=== PATIENT | female | born 1975 | race Caucasian/White ===

== ENCOUNTER 2020-11-25 05:45 | Emergency (ER) | payer OTHER ==
[2020-11-25 05:52] VITALS: TEMP 98
[2020-11-25] MEDS ORDERED: SODIUM CHLORIDE 0.9% 1,000 ML IV STA (06:12)
[2020-11-25 06:24] LABS: Basophils # (A) 0.1 k/uL (0-0.2); Basophils % (A) 0 %; Eosinophils # (A) 0.2 k/uL (0-0.7); Eosinophils % (A) 2 %; HCT 43.9 % (34.0-46.0); HGB 14.3 gm/dL (11.4-16.0); Lymphocytes # (A) 1.9 k/uL (1.0-4.8); Lymphocytes % (A) 13 %; MCH 32.1 pg (25.0-35.0); MCHC 32.5 g/dL (31.0-37.0); MCV 98.9 fL (80.0-100.0); Mean Platelet Volume 7.1; Monocytes # (A) 0.5 k/uL (0-1.0); Monocytes % (A) 4 %; Neutrophils # (A) 11.4 k/uL (1.3-7.7); Neutrophils % (A) 80 %; Platelet Count 228 k/uL (150-450); RBC 4.44 m/uL (3.80-5.40); RDW 13.2 % (11.5-15.5); WBC 14.3 k/uL (3.8-10.6)
--- NOTE | 2020-11-25 06:33 | ED ---
General Adult HPI - General Chief complaint: Abdominal Pain Stated complaint: ABD pain Source: patient, family Mode of arrival: wheelchair Limitations: no limitations - History of Present Illness Initial comments: 45-year-old female presents to the emergency room for a chief complaint of abdominal pain. Patient reports that she has had left side pain for the past 2 days. Patient states that she did slip and fall against a cabinet several days ago and is unsure if she hit her side. She states she does have a bruise to that arm. Patient states that last night she started to feel like she had to urinate frequently. States that this morning she had pain in her side. States she tried to have a bowel movement because thought maybe that was the cause and had an episode of vomiting. This did not alleviate the pain. However upon presentation to the emergency department pain improved significantly. Patient denies fevers at home. Denies diarrhea.Patient has no other complaints at this time including shortness of breath, chest pain, nausea or vomiting, headache, or visual changes. - Related Data Home Medications Medication Instructions Recorded Confirmed Omeprazole 20 mg PO DAILY 11/25/20 11/25/20 Allergies Allergy/AdvReac Type Severity Reaction Status Date / Time amoxicillin Allergy Diarrhea Verified 11/25/20 07:21 Sulfa (Sulfonamide Allergy Rash/Hives Verified 11/25/20 07:21 Antibiotics) Review of Systems ROS Statement: Those systems with pertinent positive or pertinent negative responses have been documented in the HPI. ROS Other: All systems not noted in ROS Statement are negative. Past Medical History Past Medical History: No Reported History History of Any Multi-Drug Resistant Organisms: None Reported Past Surgical History: Hysterectomy Past Psychological History: No Psychological Hx Reported Smoking Status: Current every day smoker Past Alcohol Use History: None Reported Past Drug Use History: Marijuana General Exam Limitations: no limitations General appearance: alert, in no apparent distress Head exam: Present: atraumatic, normocephalic, normal inspection Eye exam: Present: normal appearance, PERRL, EOMI. Absent: scleral icterus, conjunctival injection ENT exam: Present: normal exam, mucous membranes moist Neck exam: Present: normal inspection, full ROM. Absent: tenderness, meningismus Respiratory exam: Present: normal lung sounds bilaterally. Absent: respiratory distress, wheezes, rales, rhonchi, stridor Cardiovascular Exam: Present: regular rate, normal rhythm, normal heart sounds GI/Abdominal exam: Present: soft, normal bowel sounds. Absent: distended, tenderness Back exam: Absent: CVA tenderness (R), CVA tenderness (L) Neurological exam: Present: alert Course Vital Signs 11/25/20 11/25/20 05:46 06:49 Temperature 98 F Pulse Rate 67 Respiratory 18 Rate Blood Pressure 97/67 120/76 O2 Sat by Pulse 100 Oximetry Medical Decision Making - Medical Decision Making Vitals are stable. Patient well-appearing on exam. No abdominal tenderness. No CVA tenderness. Pain did improve significantly upon arrival to the emergency room. CBC does show mild cytosis, likely reactive. CMP unremarkable. Urinalysis does reveal hematuria. No evidence of infection. CT abdomen and pelvis was obtained. Finding the bladder base may reflect recently passed calculus which is consistent with patient's symptoms. Incidental findings include a left renal calculus, small right adrenal lesion probably benign, and thickening of the stomach wall likely related to under distention. All findings were discussed with patient and she will follow up with primary care. Patient's pain has completely resolved. She is feeling well. She is stable for discharge home. She will return for any worsening symptoms. - Lab Data Result diagrams: 11/25/20 06:12 11/25/20 06:12 Lab Results 11/25/20 11/25/20 11/25/20 Range/Units 06:12 06:12 06:12 WBC 14.3 H (3.8-10.6) k/uL RBC 4.44 (3.80-5.40) m/uL Hgb 14.3 (11.4-16.0) gm/dL Hct 43.9 (34.0-46.0) % MCV 98.9 (80.0-100.0) fL MCH 32.1 (25.0-35.0) pg MCHC 32.5 (31.0-37.0) g/dL RDW 13.2 (11.5-15.5) % Plt Count 228 (150-450) k/uL MPV 7.1 Neutrophils % 80 % Lymphocytes % 13 % Monocytes % 4 % Eosinophils % 2 % Basophils % 0 % Neutrophils # 11.4 H (1.3-7.7) k/uL Lymphocytes # 1.9 (1.0-4.8) k/uL Monocytes # 0.5 (0-1.0) k/uL Eosinophils # 0.2 (0-0.7) k/uL Basophils # 0.1 (0-0.2) k/uL Sodium 142 (137-145) mmol/L Potassium 3.7 (3.5-5.1) mmol/L Chloride 104 (98-107) mmol/L Carbon Dioxide 30 (22-30) mmol/L Anion Gap 8 mmol/L BUN 17 (7-17) mg/dL Creatinine 0.71 (0.52-1.04) mg/dL Est GFR (CKD-EPI)AfAm >90 (>60 ml/min/1.73 sqM) Est GFR (CKD-EPI)NonAf >90 (>60 ml/min/1.73 sqM) Glucose 111 H (74-99) mg/dL Calcium 10.2 (8.4-10.2) mg/dL Total Bilirubin 0.3 (0.2-1.3) mg/dL AST 22 (14-36) U/L ALT 12 (4-34) U/L Alkaline Phosphatase 71 (38-126) U/L Total Protein 7.4 (6.3-8.2) g/dL Albumin 4.7 (3.5-5.0) g/dL Urine Color Yellow Urine Appearance Clear (Clear) Urine pH 6.0 (5.0-8.0) Ur Specific [place] 1.021 (1.001-1.035) Urine Protein Trace H (Negative) Urine Glucose (UA) Negative (Negative) Urine Ketones Negative (Negative) Urine Blood Moderate H (Negative) Urine Nitrite Negative (Negative) Urine Bilirubin Negative (Negative) Urine Urobilinogen <2.0 (<2.0) mg/dL Ur Leukocyte Esterase Small H (Negative) Urine RBC >182 H (0-5) /hpf Urine WBC 12 H (0-5) /hpf Ur Squamous Epith Cells 2 (0-4) /hpf Calcium Oxalate Crystal Few H (None) /hpf Hyaline Casts 1 (0-2) /lpf Urine Mucus Moderate H (None) /hpf Disposition Clinical Impression: Nephrolithiasis Disposition: HOME SELF-CARE Condition: Good Instructions (If sedation given, give patient instructions): Kidney Stones (ED) Additional Instructions: You have passed a kidney stone. Please take Motrin if you develop pain. Follow-up with your doctor to review all CAT scan results. Return to the emergency room for any worsening symptoms. Is patient prescribed a controlled substance at d/c from ED?: No Referrals: Gee Rivera MD [Primary Care Provider] - 1-2 days Time of Disposition: 07:46
[2020-11-25 06:37] LABS: ALT 12 U/L (4-34); AST 22 U/L (14-36); African American GFR (CKD) >90 (>60 ml/min/1.73 sqM); Albumin 4.7 g/dL (3.5-5.0); Alkaline Phosphatase 71 U/L (38-126); Anion Gap 8 mmol/L; Blood Urea Nitrogen 17 mg/dL (7-17); Calcium 10.2 mg/dL (8.4-10.2); Carbon Dioxide 30 mmol/L (22-30); Chloride 104 mmol/L (98-107); Glucose 111 mg/dL (74-99); Non-African American GFR(CKD) >90 (>60 ml/min/1.73 sqM); Potassium 3.7 mmol/L (3.5-5.1); Sodium 142 mmol/L (137-145); Total Bilirubin 0.3 mg/dL (0.2-1.3); Total Protein 7.4 g/dL (6.3-8.2)
[2020-11-25 07:12] LABS: Appearance,Urine Clear (Clear); Bilirubin,Urine Negative (Negative); Blood,Urine Moderate (Negative); Color,Urine Yellow; Glucose,Urine (UA) Negative (Negative); Ketones,Urine Negative (Negative); Leukocyte Esterase,Urine Small (Negative); Nitrite,Urine Negative (Negative); Protein,Urine Trace (Negative); RBC,Urine >182 /hpf (0-5); Specific Gravity,Urine 1.021 (1.001-1.035); Urobilinogen,Urine <2.0 mg/dL (<2.0); WBC,Urine 12 /hpf (0-5)
[2020-11-25 07:13] LABS: Calcium Oxalate Crystals,Urine Few /hpf; Hyaline Casts,Urine 1 /lpf (0-2); Mucus,Urine Moderate /hpf; Squamous Epithelial Cell,Urine 2 /hpf (0-4)
--- NOTE | 2020-11-25 07:31 | CT ---
EXAM: CT Abdomen and Pelvis With Intravenous Contrast CLINICAL HISTORY: ITS.REASON CT Reason: abd pain TECHNIQUE: Axial computed tomography images of the abdomen and pelvis with intravenous contrast. CTDI is 11.47 mGy and DLP is 456.2 mGy-cm. This CT exam was performed using one or more of the following dose reduction techniques: automated exposure control, adjustment of the mA and/or kV according to patient size, and/or use of iterative reconstruction technique. COMPARISON: No relevant prior studies available. FINDINGS: Lung bases: Mild left basilar atelectasis. ABDOMEN: Liver: Unremarkable. No mass. Gallbladder and bile ducts: Unremarkable. No calcified stones. No ductal dilation. Pancreas: Unremarkable. No mass. No ductal dilation. Spleen: Unremarkable. No splenomegaly. Adrenals: Small low-density lesion in the right adrenal gland measuring 1.4 cm, probably benign. Follow-up recommended to assess for any change as indicated. Kidneys and ureters: Slight malrotation of the right kidney. Calcification in the lower left kidney. No definite right renal calcification noting limitation due to presence of contrast. Slight fullness of the left renal pelvis. No significant ureteral dilatation or calculus. Stomach and bowel: Mild thickening of the stomach wall likely due to under distention. Recommend clinical correlation and follow-up to exclude gastritis/underlying abnormality in these stomach. No small bowel dilatation. Mild to moderate retained stool. PELVIS: Appendix: Appendix not well-visualized. No secondary signs for appendicitis. Bladder: 3 mm calcification near the right bladder base. This may reflect bladder calculus related to prior passage of renal/ureteral calculus. Follow-up could be obtained to assess for any change. Thickening of the bladder wall likely due to under distention. Reproductive: Status post hysterectomy. ABDOMEN and PELVIS: Intraperitoneal space: Unremarkable. No free air. No significant fluid collection. Bones/joints: No acute fracture. No dislocation. Soft tissues: Unremarkable. Vasculature: Mild atherosclerotic changes in the abdominal aorta. No abdominal aortic aneurysm. Lymph nodes: Unremarkable. No enlarged lymph nodes. IMPRESSION: 1. Finding in the bladder base which may reflect recently passed calculus. 2. No hydronephrosis or ureteral calculus. 3. Left renal calculus 4. Small right adrenal lesion, probably benign. 5. Nonspecific bowel gas pattern with mild to moderate retained stool. 6. Thickening of the stomach wall likely due to under distention. Follow-up as indicated as described.
[2020-11-25 08:09] VITALS: BP 131/76; PULSE 69; RESP 16
== END 2020-11-25 08:08 | disposition home or self-care (01) ==
LOC: EC 05:45
DX: N20.0 Calculus of kidney (principal); F17.200 Nicotine dependence, unspecified, uncomplicated; Z79.899 Other long term (current) drug therapy
CPT/HCPCS: 36415; 80053; 85025; 81001; 87086; 74177; 99284; Q9967

== ENCOUNTER → 2021-02-14 | Outpatient (CLI) | payer OTHER ==
[2021-02-14 17:31] LABS: African American GFR (CKD) 121.3 (60.0-200.0); Albumin 4.7 g/dL (3.80-4.90); Anion Gap 8.9 mmol/L (4.00-12.00); BUN/Creat Ratio 22.86 Ratio (12.00-20.00); Calcium 9.6 mg/dL (8.7-10.3); Carbon Dioxide 26.1 mmol/L (21.6-31.8); Globulin 2.1 g/dL (1.6-3.3); Non-African American GFR(CKD) 104.6 (60.0-200.0); Potassium 4.7 mmol/L (3.5-5.5); Total Protein 6.8 g/dL (6.2-8.2)
[2021-02-14 17:32] LABS: Albumin/Globulin Ratio 2.24 (1.60-3.17); Total Bilirubin 0.1 mg/dL (0.2-1.2)
== END | disposition home or self-care (01) ==
LOC: LABWHC1 08:32
PROVIDERS: ATTEND Internal Medicine
DX: E55.9 Vitamin D deficiency, unspecified (principal); E27.8 Other specified disorders of adrenal gland
CPT/HCPCS: 36415; 80053; 82024; 82085; 82306; 82533; 82626; 83835; 84244